=== PATIENT | female | born 1995 | race Caucasian/White ===

== ENCOUNTER 2016-07-14 13:12 | Emergency (ER) | payer MEDICAID ==
[~2016-07-14] VITALS: Ht 170.2 cm; Wt 68.7 kg
[2016-07-14 13:15] VITALS: BP 110/73
== END 2016-07-14 14:32 | disposition home or self-care (01) ==
LOC: ED 14:25
DX: Z32.00 Encounter for pregnancy test, result unknown (principal)
CPT/HCPCS: 36415; 84702; 99283